=== PATIENT | male | born 1980 | race African-American/Black ===

== ENCOUNTER 2016-09-07 01:18 | Emergency (ER) | payer BC, OTHER ==
[2016-09-07 01:55] VITALS: BMI 23.5
[2016-09-07] MEDS ORDERED: PREDNISONE 10 MG TAB PO ONE (02:04)
[2016-09-07] MEDS ORDERED: OXYCODONE HCL 5 MG TABLET PO ONE (02:04)
--- NOTE | 2016-09-07 02:08 | EDPRACDOC ---
- General Information Chief Complaint: Shoulder Pain Stated Complaint: LT SHOULDER/ARM PAIN Time Seen by Provider: 09/07/16 02:00 Information Source: Patient Mode of Arrival: Car Home Medications: Home Medications Oxycodone Immediate Release [Oxy-Ir] 5 mg PO Q6H PRN #10 tab 09/07/16 Prednisone [Deltasone, Orasone] 40 mg PO DAILY 5 Days 09/07/16 Allergies/Adverse Reactions: Allergies Allergy/AdvReac Type Severity Reaction Status Date / Time acetaminophen [From Vicodin] Allergy Itching Verified 09/07/16 01:55 hydrocodone bitartrate Allergy Itching Verified 09/07/16 01:55 [From Vicodin] - History of Present Illness Onset: months HPI: C/o left shoulder pain x months. Works for [employer] and lifts boxes regularly. Pain when lifting arm above shoulder. motor function, pulses and sensation intact distal to left shoulder. Description: Reports: With Use Location: Reports: Left Circumstances: Reports: Work related Relevant History: Reports: None Pain Severity: Moderate Able to Move Shoulder?: Yes Associated Signs & Symptoms: Reports: Arm pain (left) ED Past Medical History - History Reviewed Yes Nurses notes reviewed and agree except as marked - Patient Medical History Psychological History: Denies: Depression Systemic History: Denies: Cancer - Social Medical History Smoking Status: Light tobacco smoker (less than 5/day) EDM Review of Systems - Review of Systems ROS Negative Except as Marked: Yes All systems reviewed and were negative except as marked Musculoskeletal: Shoulder (left) - Physical Exam Constitutional: No apparent distress, Alert Oriented to: Time, Person, Place Last recorded Vital Signs: Last Vital Signs Temp 97.9 F 09/07/16 01:49 Pulse 71 09/07/16 01:49 Resp 20 09/07/16 01:49 BP 109/61 09/07/16 01:49 Pulse Ox 96 09/07/16 01:49 Oxygen Pulse Oxygen Saturation 96 O2 Device Oxygen Flow Rate Fraction of Inspired Oxygen ( FIO2) - HEENT Head: Normal Eye Exam: negative: Conjunctival Injection, Scleral Icterus Oropharynx: negative: Drooling TMJ: Normal Nose: No Symptoms Reported Neck: Normal - Respiratory/Cardiovascular Respiratory: Normal - CTA Cardiovascular: Normal - GI Auscultation: Normal Palpation: Normal Tenderness: Non tender - Musculoskeletal Back: Normal Extremities: Normal - Integumentary Skin: Normal - Neurologic Mood Description: Normal Thought: Coherent Perception: Normal Other Exam Findings: FROM left shoulder, pain with rasing left arm above shoulder level. Sensation, pulses and motor fxn distal to left shoulder intact. ED Shoulder Problem Exam - Musculoskeletal Clavicle: Normal Shoulder: negative: Swelling, Ecchymosis, Deformity, Dislocation, Limited ROM, Tender, Other Arm: Normal Distal Function/Circulation: Normal - Other Exam Other Exam Findings: pain when lifting left arm above shoulder level. Decision Time to Discharge: 02:10 - Departure Disposition: Home Condition: Stable Final Diagnosis: Left shoulder pain Qualifiers: Chronicity: chronic Qualified Code(s): M25.512 - Pain in left shoulder Instructions: Shoulder Pain Education/Counseling Given Regarding: Diagnosis, Treatment, Prognosis, Follow Up Referrals: None,No Provider [Primary Care Provider] - One Week Edmundo Siu MD [Staff Physician] - One Week Prescriptions: Oxycodone Immediate Release [Oxy-Ir] 5 mg PO Q6H PRN #10 tab PRN Reason: Pain Prednisone [Deltasone, Orasone] 40 mg PO DAILY 5 Days Additional Instructions: Follow up with orthopedics and primary care for chronic shoulder pain. The name of an orthopedist has been provided for you if you do not have one. Take oxycodone for pain. Take prednisone for inflammation. Return to Ed for any new or worsening symptoms.
[2016-09-07 02:28] VITALS: BP 111/69; PULSE 77; TEMP 98
== END 2016-09-07 02:26 | disposition home or self-care (01) ==
LOC: ED 01:18
DX: M25.512 Pain in left shoulder (principal)
CPT/HCPCS: 99283; J3490